=== PATIENT | male | born 1970 | race Caucasian/White ===

== ENCOUNTER 2023-04-05 09:17 | Outpatient (OUT) | payer OTHER, SELFPAY ==
--- NOTE | 2023-04-05 09:33 | XR_ITS ---
The [address] [address] Patient Name: IFRAH MURPHY MRN: [id number] date: 1970 Sex: M Assigned Patient Location: MRI Current Patient Location: MRI Accession/Order Number: [id number] Exam Date: 04/05/2023 09:40 Report Date: 04/05/2023 10:01 At the request of: GIRISH BEYER Procedure: XR cervical spine 5V EXAMINATION: XR cervical spine 5V HISTORY: Cervical Pain M54.2 COMPARISON: No relevant comparison available. FINDINGS: BONES: Normal alignment with no acute fracture or spondylolisthesis. Moderate degenerative spondylosis and facet osteoarthropathy DISC SPACES: Normal. No significant disc height narrowing, subluxation, or endplate abnormality. PARASPINOUS: Negative. No paraspinous abnormality is seen. OTHER: Negative. XR/XR cervical spine 5V IMPRESSION: Moderate degenerative changes Electronically authenticated by: JESSICA JOHNSON Date: 04/05/2023 10:01
--- NOTE | 2023-04-05 09:33 | MR_ITS ---
The [address] [address] Patient Name: IFRAH MURPHY MRN: [id number] date: 1970 Sex: M Assigned Patient Location: MRI Current Patient Location: MRI Accession/Order Number: [id number] Exam Date: 04/05/2023 09:55 Report Date: 04/05/2023 13:02 At the request of: GIRISH BEYER Procedure: MR head/brain wo con EXAMINATION: MR head/brain wo con, 04/05/2023 9:55 AM EDT HISTORY: History Of Head Injury Z87.828 COMPARISON: None. TECHNIQUE: MRI of the brain was performed without IV contrast. HISTORY: History Of Head Injury Z87.828 FINDINGS: CEREBRUM: Mild diffuse supratentorial atrophy. Area of CSF density inferior left temporal lobe, axial image #11 normal perivascular space favored over a remote lacunar infarct. No significant signal abnormality parenchymal mass or hemorrhage CEREBELLUM: No edema, hemorrhage, mass, acute infarction, or inappropriate atrophy. BRAINSTEM: No edema, hemorrhage, mass, acute infarction, or inappropriate atrophy. CSF SPACES: Ventricles, cisterns, and sulci are appropriate for age. No hydrocephalus, subarachnoid hemorrhage, or mass. SKULL: No mass or other significant visible lesion. SINUSES: Soft tissue attenuation inferior left maxillary sinus, mucous retention cysts favored. Minimal ethmoid sinus disease ORBITS: Limited views are unremarkable. OTHER: Negative. MR/MR head/brain wo con IMPRESSION: No acute intracranial abnormality Electronically authenticated by: JESSICA JOHNSON Date: 04/05/2023 13:02
== END 2023-04-05 09:18 | disposition home or self-care (01) ==
PROVIDERS: PCP Family Medicine; Visit Provider Family Medicine
DX: M54.2 Cervicalgia (principal); Z87.828 Personal history of other (healed) physical injury and trauma
CPT/HCPCS: 70551; 72050

== ENCOUNTER 2024-11-23 09:51 | Outpatient (OUT) | payer OTHER, MEDICAID, SELFPAY ==
[2024-11-23 10:27] LABS: Basophils Absolute Auto 0.1 10^3/uL (0.0-0.1); Basophils Percent Auto 0.8 % (0.2-2.0); Eosinophils Absolute Auto 0.3 10^3/uL (0.0-0.7); Eosinophils Percent Auto 2.9 % (0.9-7.0); Hematocrit 45.4 % (42.0-54.0); Hemoglobin 15.6 g/dL (14.0-18.0); Immature Granulocytes Abs Auto 0.07 10^3/uL (0.00-0.03); Immature Granulocytes Pct Auto 0.6 % (0.0-0.5); Lymphocytes Absolute Auto 2.5 10^3/uL (1.2-3.8); Mean Corpuscular HGB Conc 34.4 g/dL (29.9-35.2); Mean Corpuscular Hemoglobin 28.6 pg (25.9-34.0); Mean Corpuscular Volume 83.3 fL (80.0-94.0); Mean Platelet Volume 11.3 fL (9.5-13.5); Monocytes Absolute Auto 0.6 10^3/uL (0.3-0.8); Monocytes Percent Auto 5.7 % (1.7-12.0); Neutrophils Absolute Auto 7.3 10^3/uL (1.4-6.5); Platelet Count 257 10^3/uL (150-450); Red Blood Count 5.45 10^6/uL (4.70-6.10); Red Cell Distribution Width 12.5 % (11.0-15.0); White Blood Count 10.9 10^3/uL (4.0-11.0)
[2024-11-23 10:38] LABS: Estimated Average Glucose 255 mg/dL; Glycohemoglobin A1C 10.5 % (4.5-6.2)
[2024-11-23 10:38] LABS: Creatinine Urine Random 126.65 mg/dL (20.00-300.00); Microalbumin Urine Random <1.3 mg/dL (<=30.0)
[2024-11-23 11:52] LABS: Alanine Aminotransferase 58 U/L (16-63); Albumin Globulin Ratio 0.8; Albumin Level 3.3 g/dL (3.4-5.0); Alkaline Phosphatase 108 U/L (46-116); Anion Gap 12.1; Aspartate Amino Transferase 30 U/L (15-37); BUN Creatinine Ratio 18.1; Bilirubin Total 0.3 mg/dL (0.2-1.0); Calcium 8.5 mg/dL (8.5-10.1); Chloride 97 mmol/L (98-107); Cholesterol 145 mg/dL (<=200); Estimated GFR (African America >60 (>=60 mL/min/1.73m^2); Estimated GFR (Non-African Ame >60 (>=60 mL/min/1.73m^2); Globulin 3.9 g/dL; Glucose 346 mg/dL (74-106); HDL Cholesterol 36 mg/dL (40-60); Potassium 4.1 mmol/L (3.5-5.1); Sodium 131 mmol/L (136-145); TSH W/ REFLEX FT4 5.698 uIU/mL (0.358-3.740); Total Protein 7.2 g/dL (6.4-8.2); Triglycerides 148 mg/dL (<=150); VLDL CHOLESTEROL 29.6 mg/dL
[2024-11-23 12:06] LABS: Prostate Specific Antigen Scrn 1.37 ng/mL (<=4.00)
[2024-11-23 15:07] LABS: Free T4 0.98 ng/dL (0.76-1.46)
== END 2024-11-23 09:52 | disposition home or self-care (01) ==
PROVIDERS: PCP Family Medicine; Visit Provider Family Medicine
DX: Z00.00 Encounter for general adult medical examination without abnormal findings (principal); E11.65 Type 2 diabetes mellitus with hyperglycemia; R53.83 Other fatigue; Z12.5 Encounter for screening for malignant neoplasm of prostate; Z79.899 Other long term (current) drug therapy; F32.A Depression, unspecified
CPT/HCPCS: 36415; 80053; 80061; 80326; 80331; 80334; 80337; 80338; 80341; 80344; 80347; 80348; 80353; 80354; 80355; 80357; 80358; 80359; 80360; 80361; 80364; 80365; 80366; 80367; 80368; 80370; 80371; 80372; 80373; 80377; 82043; 82570; 83036; 83992; 84439; 84443; 85025; G0103